=== PATIENT | female | born 1975 | race Caucasian/White ===

== ENCOUNTER 2018-12-10 00:50 | Emergency (ER) | payer BC, OTHER ==
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
[2018-12-10 01:41] LABS: ANION GAP 11.7 mmol/L (5-15); CHLORIDE,CL 104 mmol/L (98-115); SODIUM,NA 138 mmol/L (136-145)
[2018-12-10] MEDS ORDERED: Nitrofurantoin Macrocrystal 50 MG Cap PO ONE (02:33)
== END 2018-12-10 02:45 | disposition home or self-care (01) ==
LOC: KA.ED 00:50
DX: N30.90 Cystitis, unspecified without hematuria (principal); Z79.899 Other long term (current) drug therapy
CPT/HCPCS: 36415; 80048; 80305-QW; 81001; 82962; 84443; 85025; 93005; 99285-25; A9270-GY; G0480

== ENCOUNTER 2020-06-22 20:12 | Emergency (ER) | payer OTHER ==
--- NOTE | 2020-06-22 20:40 | EDM.PDOC ---
ED HPI GENERAL MEDICAL PROBLEM - General Chief Complaint: Flank Pain Stated Complaint: BACK PAIN Time Seen by Provider: 06/22/20 20:40 Source of Information: Reports: Patient History Limitations: Reports: No Limitations - History of Present Illness INITIAL COMMENTS - FREE TEXT/NARRATIVE: Worsening right flank pain specifically today. Was seen in the clinic today with a UA run showing positive findings for infection. Received a gram of Rocephin IM and states she is coming back tomorrow for further antibiotic treatment. States pain is getting worse predominantly in the right flank questioning worsening symptoms with her associated UTI during . Onset: Today, Gradual Duration: Hour(s):, Getting Worse Location: Reports: Back Quality: Reports: Pressure, Sharp, Stabbing Severity: Moderate Improves with: Reports: None Worsens with: Reports: Movement Associated Symptoms: Reports: Fever/Chills Treatments BUSINESS ANALYTICS SPECIALIST: Reports: NSAIDS Lower Back Pain Score (Numeric/FACES): 8 - Related Data Allergies Allergy/AdvReac Type Severity Reaction Status Date / Time No Known Drug Allergies Allergy Unknown Other Verified 06/22/20 20:30 Home Meds: Home Meds Levothyroxine [Synthroid] 88 mcg PO DAILY 12/10/18 [History] Pnv No.103/Folic/Om3s/Fish Oil [ Gummies] 2 each PO DAILY 06/22/20 [History] Past Medical History Genitourinary History: Reports: Other (See Below) (UTI) COMPENSATION SPECIALIST History: Reports: Other COMPENSATION SPECIALIST History: 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 Endocrine/Metabolic History: Reports: Hypothyroidism Social & Family History - Family History Family Medical History: Noncontributory - Caffeine Use Caffeine Use: Reports: Soda ED ROS GENERAL - Review of Systems Review Of Systems: See Below Constitutional: Reports: Chills HEENT: Reports: No Symptoms Respiratory: Reports: No Symptoms Cardiovascular: Reports: No Symptoms Endocrine: Reports: No Symptoms GI/Abdominal: Reports: Abdominal Pain : Reports: Frequency Musculoskeletal: Reports: Back Pain Neurological: Reports: No Symptoms Psychiatric: Reports: No Symptoms Hematologic/Lymphatic: Reports: No Symptoms Immunologic: Reports: No Symptoms ED EXAM, GENERAL - Physical Exam Exam: See Below Free Text/Narrative:: Alert in discomfort, 44-year-old female who reports 16-week gestation at this time. Heart tones were found in the clinic and were normal range on her visit today. She received 1 g Rocephin IM for her UTI during and was scheduled for follow-up tomorrow. HEENT is negative discharge or deformity. PERRLA no icterus no injection. [place] moist mucous membranes with no erythema. Thorax is clear throughout no wheezes no crackles motion seems to induce right flank discomfort. Cardiac is S1 is 2 no noted murmur. Abdomen is soft tenderness is noted to the right lateral aspect with bowel sounds present. Percussion of the right flank induces severe pain and spasming. Left is for the most part benign. She is able to move her legs about with no discomfort. Course - Vital Signs Last Recorded V/S: Last Vital Signs Temp 38.1 C 06/22/20 21:31 Pulse 105 H 06/22/20 21:31 Resp 20 06/22/20 21:31 BP 108/61 06/22/20 21:31 Pulse Ox 99 06/22/20 21:31 - Orders/Labs/Meds Orders: Active Orders 24 hr Category Date Time Status Peripheral IV Care [RC] . DIRECTED Care 06/22/20 20:43 Active CULTURE URINE [RM] Stat Lab 06/22/20 21:05 Received Potassium Chloride [KCL 20 MEQ in Water 100 ML] 20 meq Med 06/22/20 21:38 Ordered Premix Bag 1 bag IV ONETIME Sodium Chloride 0.9% [Normal Saline] 1,000 ml Med 06/22/20 20:45 Active IV ASDIRECTED Sodium Chloride 0.9% [Saline Flush] Med 06/22/20 20:43 Active 10 ml FLUSH Q8HR PRN Peripheral IV Insertion Adult [OM.PC] Routine Oth 06/22/20 20:43 Ordered Medication Orders Sodium Chloride (Normal Saline) 1,000 mls @ 150 mls/hr IV ASDIRECTED CAYLA Last Admin: 06/22/20 20:54 Dose: 150 mls/hr Documented by: ASHER Potassium Chloride 20 meq/ (Premix) 100 mls @ 50 mls/hr IV ONETIME ONE Stop: 06/22/20 23:37 Sodium Chloride (Saline Flush) 10 ml FLUSH Q8HR PRN PRN Reason: keep vein open Labs: Laboratory Tests 06/22/20 06/22/20 06/22/20 Range/Units 20:55 20:55 20:55 WBC 3.51 L (5.00-10.00) 10^3/uL RBC 3.35 L (3.80-5.50) 10^6/uL Hgb 11.2 L (12.0-16.0) g/dL Hct 32.1 L (37.0-47.0) % MCV 95.8 H (82.0-92.0) fL MCH 33.4 H (27.0-31.0) pg MCHC 34.9 (32.0-36.0) g/dL RDW 13.7 (11.5-14.5) % Plt Count 128 L (150-400) 10^3/uL MPV 9.5 (7.4-10.4) fL Add Manual Diff Yes Sodium 135 L (136-145) mmol/L Potassium 2.9 L (3.3-5.3) mmol/L Chloride 98 (98-115) mmol/L Carbon Dioxide 19.6 L (21.0-32.0) mmol/L Anion Gap 20.3 H (5-15) mmol/L BUN 11 (6-25) mg/dL Creatinine 0.92 (0.51-1.17) mg/dL Est Cr Clr Drug Dosing 60.11 mL/min Estimated GFR (MDRD) > 60 mL/min Glucose 81 (75 - 99) mg/dL Lactic Acid 1.8 (0.4-2.0) mmol/L Calcium 8.1 L (8.7-10.3) mg/dL Total Bilirubin 0.8 (0.2-1.0) mg/dL AST 15 (15-37) U/L ALT 14 (12-78) U/L Alkaline Phosphatase 84 (46-116) IU/L Total Protein 6.9 (6.4-8.2) g/dL Albumin 2.85 L (3.00-4.80) g/dL Specimen Type Urine Color (YELLOW) Urine Appearance (CLEAR) Urine pH (5.0-9.0) Ur Specific [place] (1.005-1.030) Urine Protein (NEGATIVE) mg/dL Urine Glucose (UA) (NEGATIVE) mg/dL Urine Ketones (NEGATIVE) mg/dL Urine Occult Blood (NEGATIVE) Urine Nitrite (NEGATIVE) Urine Bilirubin (NEGATIVE) Urine Urobilinogen (0.2-1.0) E.U./dL Ur Leukocyte Esterase (NEGATIVE) Urine RBC (0-5) /HPF Urine WBC (0-5) /HPF Ur Epithelial Cells /LPF Urine Bacteria (NONE TO FEW) /HPF 06/22/20 Range/Units 21:05 WBC (5.00-10.00) 10^3/uL RBC (3.80-5.50) 10^6/uL Hgb (12.0-16.0) g/dL Hct (37.0-47.0) % MCV (82.0-92.0) fL MCH (27.0-31.0) pg MCHC (32.0-36.0) g/dL RDW (11.5-14.5) % Plt Count (150-400) 10^3/uL MPV (7.4-10.4) fL Add Manual Diff Sodium (136-145) mmol/L Potassium (3.3-5.3) mmol/L Chloride (98-115) mmol/L Carbon Dioxide (21.0-32.0) mmol/L Anion Gap (5-15) mmol/L BUN (6-25) mg/dL Creatinine (0.51-1.17) mg/dL Est Cr Clr Drug Dosing mL/min Estimated GFR (MDRD) mL/min Glucose (75 - 99) mg/dL Lactic Acid (0.4-2.0) mmol/L Calcium (8.7-10.3) mg/dL Total Bilirubin (0.2-1.0) mg/dL AST (15-37) U/L ALT (12-78) U/L Alkaline Phosphatase (46-116) IU/L Total Protein (6.4-8.2) g/dL Albumin (3.00-4.80) g/dL Specimen Type Urincc Urine Color Yellow (YELLOW) Urine Appearance Slightly cloudy H (CLEAR) Urine pH 6.5 (5.0-9.0) Ur Specific [place] 1.020 (1.005-1.030) Urine Protein 100 H (NEGATIVE) mg/dL Urine Glucose (UA) Negative (NEGATIVE) mg/dL Urine Ketones >=160 H (NEGATIVE) mg/dL Urine Occult Blood Large H (NEGATIVE) Urine Nitrite Negative (NEGATIVE) Urine Bilirubin Negative (NEGATIVE) Urine Urobilinogen 0.2 (0.2-1.0) E.U./dL Ur Leukocyte Esterase Small H (NEGATIVE) Urine RBC Semi-packed (0-5) /HPF Urine WBC Semi-packed (0-5) /HPF Ur Epithelial Cells Moderate H /LPF Urine Bacteria Many H (NONE TO FEW) /HPF Meds: Medications Generic Name Dose Route Start Last Admin Trade Name Freq PRN Reason Stop Dose Admin Sodium Chloride 1,000 mls @ 150 mls/hr 06/22/20 20:45 06/22/20 20:54 Normal Saline IV 150 mls/hr ASDIRECTED CAYLA Administration Potassium Chloride 20 meq/ 100 mls @ 50 mls/hr 06/22/20 21:38 Premix IV 06/22/20 23:37 ONETIME ONE Sodium Chloride 10 ml 06/22/20 20:43 Saline Flush FLUSH Q8HR PRN keep vein open Discontinued Medications Generic Name Dose Route Start Last Admin Trade Name Freq PRN Reason Stop Dose Admin Acetaminophen 1,000 mg 06/22/20 21:00 06/22/20 21:16 Tylenol Extra Strength PO 06/22/20 21:01 1,000 mg ONETIME ONE Administration Departure - Departure Time of Disposition: 21:53 Disposition: DC/Tfer to Acute Hospital 02 Condition: Good Clinical Impression: Hypokalemia, Bladder infection, Acute right flank pain, UTI (urinary tract infection) in in first trimester, Proteinuria, Ketonuria, Anemia, Hematuria - Discharge Information *PRESCRIPTION DRUG MONITORING PROGRAM REVIEWED*: Not Applicable *COPY OF PRESCRIPTION DRUG MONITORING REPORT IN PATIENT ESTEPHANIA: Not Applicable Referrals: Yaneth Hwang PA-C [Primary Care Provider] - Forms: Interfacility Transfer EMTALA, ED Department Discharge Additional Instructions: Transfer [facility] for ultrasound availability. Dr. Mancilla accepting. Sepsis Event Note (ED) - Focused Exam Vital Signs: Vital Signs Temp Temp Pulse Resp BP Pulse Ox 06/22/20 21:31 38.1 C 105 H 20 108/61 99 06/22/20 21:16 38.1 C 06/22/20 20:35 38.5 C H 113 H 20 117/62 96 - Problem List & Annotations (1) UTI (urinary tract infection) in in first trimester SNOMED Code(s): 744864166, 680314318 Code(s): O23.41 - UNSP INFCT OF URINARY TRACT IN , FIRST TRIMESTER Status: Acute Priority: High Current Visit: Yes (2) Anemia SNOMED Code(s): 918917762 Code(s): D64.9 - ANEMIA, UNSPECIFIED Status: Acute Priority: High Current Visit: Yes Qualifiers: Anemia type: other cause Other causes of anemia: other cause, not classified Qualified Code(s): D64.89 - Other specified anemias (3) Hypokalemia SNOMED Code(s): 99660291 Code(s): E87.6 - HYPOKALEMIA Status: Acute Priority: Medium Current Visit: Yes (4) Proteinuria SNOMED Code(s): 56786070 Code(s): R80.9 - PROTEINURIA, UNSPECIFIED Status: Acute Priority: High Current Visit: Yes Qualifiers: Proteinuria type: unspecified Qualified Code(s): R80.9 - Proteinuria, unspecified (5) Ketonuria SNOMED Code(s): 408470378 Code(s): R82.4 - ACETONURIA Status: Acute Priority: Medium Current Visit: Yes (6) Hematuria SNOMED Code(s): 01354811 Code(s): R31.9 - HEMATURIA, UNSPECIFIED Status: Acute Priority: Medium Current Visit: Yes Qualifiers: Hematuria type: other microscopic Qualified Code(s): R31.29 - Other microscopic hematuria; R31.2 - Other microscopic hematuria (7) Acute right flank pain SNOMED Code(s): 678743043, 765585849 Code(s): R10.9 - UNSPECIFIED ABDOMINAL PAIN Status: Acute Priority: Medium Current Visit: Yes (8) Bladder infection SNOMED Code(s): 876757536 Code(s): N30.90 - CYSTITIS, UNSPECIFIED WITHOUT HEMATURIA Status: Acute Priority: High Current Visit: No - Problem List Review Problem List Initiated/Reviewed/Updated: Yes - My Orders Last 24 Hours: My Active Orders 06/22/20 20:43 Peripheral IV Care [RC] . DIRECTED Sodium Chloride 0.9% [Saline Flush] 10 ml FLUSH Q8HR PRN Peripheral IV Insertion Adult [OM.PC] Routine 06/22/20 20:45 Sodium Chloride 0.9% [Normal Saline] 1,000 ml IV ASDIRECTED 06/22/20 21:05 CULTURE URINE [RM] Stat 06/22/20 21:38 Potassium Chloride [KCL 20 MEQ in Water 100 ML] 20 meq Premix Bag 1 bag IV ONETIME - Assessment/Plan Last 24 Hours: My Active Orders 06/22/20 20:43 Peripheral IV Care [RC] . DIRECTED Sodium Chloride 0.9% [Saline Flush] 10 ml FLUSH Q8HR PRN Peripheral IV Insertion Adult [OM.PC] Routine 06/22/20 20:45 Sodium Chloride 0.9% [Normal Saline] 1,000 ml IV ASDIRECTED 06/22/20 21:05 CULTURE URINE [RM] Stat 06/22/20 21:38 Potassium Chloride [KCL 20 MEQ in Water 100 ML] 20 meq Premix Bag 1 bag IV ONETIME Plan: Transfer to the [place] emergency department in [facility] for ultrasound and potential OB consult if needed.
[2020-06-22] MEDS ORDERED: Sodium Chloride 0.9% 10 ML Syringe FLUSH PRN (20:43)
[2020-06-22] MEDS ORDERED: Sodium Chloride 0.9% 1,000 ML IV SCH (20:45)
[2020-06-22] MEDS ORDERED: Acetaminophen 500 MG Tab PO ONE (21:00)
[2020-06-22 21:33] LABS: ANION GAP 20.3 mmol/L (5-15); CHLORIDE,CL 98 mmol/L (98-115); SODIUM,NA 135 mmol/L (136-145)
[2020-06-22] MEDS ORDERED: Potassium Chloride 20 MEQ in Premix Bag 1 BAG IV ONE (21:38)
== END 2020-06-22 22:20 ==
LOC: KA.ED 20:12
DX: O23.12 Infections of bladder in pregnancy, second trimester (principal); O99.012 Anemia complicating pregnancy, second trimester; O99.282 Endocrine, nutritional and metabolic diseases complicating pregnancy, second trimester; E87.6 Hypokalemia; E03.9 Hypothyroidism, unspecified; O99.89 Other specified diseases and conditions complicating pregnancy, childbirth and the puerperium; R31.9 Hematuria, unspecified; R80.9 Proteinuria, unspecified; R82.4 Acetonuria; Z79.899 Other long term (current) drug therapy; Z3A.16 16 weeks gestation of pregnancy
CPT/HCPCS: 80053; 81001; 83605; 85025; 87086; 96361; 96365; 99284; 99285-25; A9270-GY; J3480; J7030

== ENCOUNTER 2021-05-23 08:18 | Emergency (ER) | payer OTHER ==
--- NOTE | 2021-05-23 08:42 | EDM.PDOC ---
ED HPI GENERAL MEDICAL PROBLEM - General Chief Complaint: Gastrointestinal Problem Stated Complaint: nausea/vomiting Time Seen by Provider: 05/23/21 08:42 Source of Information: Reports: Patient - History of Present Illness INITIAL COMMENTS - FREE TEXT/NARRATIVE: Rola, 45-year-old female, presents with her with complaints of nausea with emesis previously. He had eaten ribs that have been brought by her family with them eating the same substance Monday night with no sequela. Rola started experiencing abdominal cramping with nausea and vomiting that evening. Symptoms of, wax and wane but never completely resolved over the weekend. She presents this morning with continued event. Mild hyperventilation symptoms at this time. Voided this morning with no urge to void at this time. No exposure risks with other family members being ill, predominantly only herself. states this is similar to the last time she had a UTI. Onset Date: 05/21/21 Onset Time: 20:00 Duration: Day(s): Location: Reports: Abdomen Generalized Pain Score (Numeric/FACES): 6 - Related Data Allergies Allergy/AdvReac Type Severity Reaction Status Date / Time No Known Drug Allergies Allergy Unknown Other Verified 05/23/21 09:31 Home Meds: Home Meds Levothyroxine [Synthroid] 88 mcg PO DAILY 12/10/18 [History] Pnv No.103/Folic/Om3s/Fish Oil [ Gummies] 2 each PO DAILY 06/22/20 [History] Past Medical History HEENT History: Reports: Impaired Vision Cardiovascular History: Reports: None Respiratory History: Reports: None Gastrointestinal History: Reports: None Genitourinary History: Reports: Other (See Below) (UTI) 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 Musculoskeletal History: Reports: None Neurological History: Reports: None Psychiatric History: Reports: None Endocrine/Metabolic History: Reports: Hypothyroidism Hematologic History: Reports: None Immunologic History: Reports: None Oncologic (Cancer) History: Reports: Thyroid Dermatologic History: Reports: None - Infectious Disease History Infectious Disease History: Reports: None - Past Surgical History Cardiovascular Surgical History: Reports: None Respiratory Surgical History: Reports: None GI Surgical History: Reports: None Female Surgical History: Reports: None, Tubal Ligation Musculoskeletal Surgical History: Reports: None Social & Family History - Family History Family Medical History: No Pertinent Family History - Caffeine Use Caffeine Use: Reports: Soda ED ROS GENERAL - Review of Systems Review Of Systems: Comprehensive ROS is negative, except as noted in HPI. ED EXAM, GENERAL - Physical Exam Exam: See Below Free Text/Narrative:: Alert oriented in illness appearing state. HEENT is negative discharge or deformity Tacky membranes. Neck soft supple no lymphadenopathy. Thorax is clear I do not appreciate any wheezes nor any crackles. Cardiac is tachycardic frequent murmur. Abdomen is soft mild pressure tenderness with bowel sounds present. No edema to the lower extremities. Course - Vital Signs Last Recorded V/S: Last Vital Signs Temp 98.8 F 05/23/21 10:10 Pulse 99 05/23/21 10:25 Resp 16 05/23/21 10:25 BP 108/55 L 05/23/21 10:25 Pulse Ox 96 05/23/21 10:25 - Orders/Labs/Meds Orders: Active Orders 24 hr Category Date Time Status CULTURE URINE [RM] Stat Lab 05/23/21 09:30 Received Labs: Laboratory Tests 05/23/21 05/23/21 05/23/21 Range/Units 08:35 08:35 08:35 WBC 7.04 (5.00-10.00) 10^3/uL RBC 4.71 (3.80-5.50) 10^6/uL Hgb 14.8 D (12.0-16.0) g/dL Hct 45.7 (37.0-47.0) % MCV 97.0 H (82.0-92.0) fL MCH 31.4 H (27.0-31.0) pg MCHC 32.4 (32.0-36.0) g/dL RDW 13.0 (11.5-14.5) % Plt Count 187 (150-400) 10^3/uL MPV 9.6 (7.4-10.4) fL Immature Gran % (Auto) 0.0 (0.0-5.0) % Neut % (Auto) 89.5 H (50.0-70.0) % Lymph % (Auto) 9.5 L (20.0-40.0) % Louisa % (Auto) 0.7 L (2.0-8.0) % Eos % (Auto) 0.0 L (1.0-3.0) % Baso % (Auto) 0.3 (0.0-1.0) % Neut # (Auto) 6.30 (2.50-7.00) 10^3/uL Lymph # (Auto) 0.67 L (1.00-4.00) 10^3/uL Louisa # (Auto) 0.05 L (0.10-0.80) 10^3/uL Eos # (Auto) 0.00 L (0.10-0.30) 10^3/uL Baso # (Auto) 0.02 (0.00-0.10) 10^3/uL Immature Gran # (Auto) 0.00 (0.00-0.50) 10^3/uL Sodium 136 (136-145) mmol/L Potassium 3.9 (3.5-5.1) mmol/L Chloride 96 L (98-107) mmol/L Carbon Dioxide 16.1 L (21.0-32.0) mmol/L Anion Gap 27.8 H (5-15) mmol/L BUN 18 (7-18) mg/dL Creatinine 0.84 (0.51-1.17) mg/dL Est Cr Clr Drug Dosing TNP Estimated GFR (MDRD) > 60 mL/min Glucose 115 (70-140) mg/dL Lactic Acid 5.8 H (0.4-2.0) mmol/L Calcium 8.5 L (8.7-10.3) mg/dL Total Bilirubin 1.4 H (0.2-1.0) mg/dL AST 17 (15-37) U/L ALT 23 (14-63) U/L Alkaline Phosphatase 119 H (46-116) U/L Total Protein 9.0 H (6.4-8.2) g/dL Albumin 3.94 (3.40-5.00) g/dL Specimen Type Urine Color (YELLOW) Urine Appearance (CLEAR) Urine pH (5.0-9.0) Ur Specific [place] (1.005-1.030) Urine Protein (NEGATIVE) mg/dL Urine Glucose (UA) (NEGATIVE) mg/dL Urine Ketones (NEGATIVE) mg/dL Urine Occult Blood (NEGATIVE) Urine Nitrite (NEGATIVE) Urine Bilirubin (NEGATIVE) Urine Urobilinogen (0.2-1.0) E.U./dL Ur Leukocyte Esterase (NEGATIVE) Urine RBC (0-5) /HPF Urine WBC (0-5) /HPF Ur Epithelial Cells /LPF Urine Bacteria (NONE TO FEW) /HPF 05/23/21 Range/Units 09:30 WBC (5.00-10.00) 10^3/uL RBC (3.80-5.50) 10^6/uL Hgb (12.0-16.0) g/dL Hct (37.0-47.0) % MCV (82.0-92.0) fL MCH (27.0-31.0) pg MCHC (32.0-36.0) g/dL RDW (11.5-14.5) % Plt Count (150-400) 10^3/uL MPV (7.4-10.4) fL Immature Gran % (Auto) (0.0-5.0) % Neut % (Auto) (50.0-70.0) % Lymph % (Auto) (20.0-40.0) % Louisa % (Auto) (2.0-8.0) % Eos % (Auto) (1.0-3.0) % Baso % (Auto) (0.0-1.0) % Neut # (Auto) (2.50-7.00) 10^3/uL Lymph # (Auto) (1.00-4.00) 10^3/uL Louisa # (Auto) (0.10-0.80) 10^3/uL Eos # (Auto) (0.10-0.30) 10^3/uL Baso # (Auto) (0.00-0.10) 10^3/uL Immature Gran # (Auto) (0.00-0.50) 10^3/uL Sodium (136-145) mmol/L Potassium (3.5-5.1) mmol/L Chloride (98-107) mmol/L Carbon Dioxide (21.0-32.0) mmol/L Anion Gap (5-15) mmol/L BUN (7-18) mg/dL Creatinine (0.51-1.17) mg/dL Est Cr Clr Drug Dosing Estimated GFR (MDRD) mL/min Glucose (70-140) mg/dL Lactic Acid (0.4-2.0) mmol/L Calcium (8.7-10.3) mg/dL Total Bilirubin (0.2-1.0) mg/dL AST (15-37) U/L ALT (14-63) U/L Alkaline Phosphatase (46-116) U/L Total Protein (6.4-8.2) g/dL Albumin (3.40-5.00) g/dL Specimen Type Ur[place]ath Urine Color Yellow (YELLOW) Urine Appearance Clear (CLEAR) Urine pH 5.5 (5.0-9.0) Ur Specific [place] >= 1.030 (1.005-1.030) Urine Protein 100 H (NEGATIVE) mg/dL Urine Glucose (UA) Negative (NEGATIVE) mg/dL Urine Ketones >=160 H (NEGATIVE) mg/dL Urine Occult Blood Large H (NEGATIVE) Urine Nitrite Negative (NEGATIVE) Urine Bilirubin Negative (NEGATIVE) Urine Urobilinogen 0.2 (0.2-1.0) E.U./dL Ur Leukocyte Esterase Trace H (NEGATIVE) Urine RBC 75-100 H (0-5) /HPF Urine WBC >100 H (0-5) /HPF Ur Epithelial Cells Rare /LPF Urine Bacteria Rare (NONE TO FEW) /HPF Meds: Medications Discontinued Medications Generic Name Dose Route Start Last Admin Trade Name Bakari PRN Reason Stop Dose Admin Sodium Chloride 1,000 mls @ 999 mls/hr 05/23/21 08:35 05/23/21 08:51 Normal Saline IV 05/23/21 09:35 999 mls/hr .BOLUS ONE Administration Sodium Chloride 1,000 mls @ 999 mls/hr 05/23/21 09:46 05/23/21 09:50 Normal Saline IV 05/23/21 10:46 999 mls/hr .BOLUS ONE Administration Sodium Chloride Confirm 05/23/21 09:48 Normal Saline Administered 05/23/21 09:49 Dose 1,000 mls @ as directed .ROUTE .STK-MED ONE Ondansetron HCl 4 mg 05/23/21 08:37 05/23/21 08:50 Ondansetron 4 Mg/2 Ml Sdv IVPUSH 05/23/21 08:38 4 mg ONETIME ONE Administration - Re-Assessments/Exams Free Text/Narrative Re-Assessment/Exam: 05/23/21 09:29 Feeling better at this time IV fluidsFeeling better at this time IV fluids and able to take ice chips with no nausea. 05/23/21 09:47 Continuing to feel better with IV fluids nearly complete. Second bag will run as she still remains mildly tachycardic. Extreme concentration of the urine was noted. No further hyperventilation since fluids were started and anti-emetic given. Lab values reflect alkalosis due to hyperventilation. 05/23/21 09:48 Free Text/Narrative Re-Assessment/Exam: 05/23/21 10:55 Second liter of IV fluid concluded , feeling somewhat better. We were able to get up to bedside in a seated position with no dizziness nor complaint. She was unable to stand directly stating she feels good and ambulate with no di stress. At that time we discussed the aspects that she needs increased fluid and to maintain a less stressful lifestyle for the next 24 hours and if symptoms return or worsen contact us or follow-up with the clinic as there is not a true gross presentation in the urine for treatment, maintains a normal white count, and lactic acid may elevate for various other reasons with metabolism. Departure - Departure Time of Disposition: 10:54 Disposition: Home, Self-Care 01 Condition: Good Clinical Impression: Elevated lactic acid level, Tachycardia, Nausea & vomiting - Discharge Information *PRESCRIPTION DRUG MONITORING PROGRAM REVIEWED*: Not Applicable *COPY OF PRESCRIPTION DRUG MONITORING REPORT IN PATIENT ESTEPHANIA: Not Applicable Instructions: Dehydration, Adult, [id number], Nausea, Adult, [id number] Referrals: Joy العلي MD [Primary Care Provider] - Forms: ED Department Discharge Additional Instructions: Your urine is not grossly positive for UTI, blood is quite common to be seen when a catheter was used to obtain the sample. Culture is pending on this and you will be contacted if a bacterial development would culture. The nausea you started experiencing with vomiting after eating may be just be coincidental but it did contribute to you becoming more to the dehydrated state. Your urine was extremely concentrated as well as your heart rate being high when you came in, which is improved with the fluids. You need to go home and rest, continue your medications, make sure you continue to push fluids and maintain a clear appearing urine. In the event your symptoms should return or you develop new symptoms consideration for return to the emergency department should be considered or follow-up with your clinic this week. We will be contacting you with the culture results if positive requiring any form of treatment. Sepsis Event Note (ED) - Focused Exam Vital Signs: Vital Signs Temp Pulse Resp BP Pulse Ox 05/23/21 10:25 99 16 108/55 L 96 05/23/21 10:10 98.8 F 106 H 16 109/56 L 98 05/23/21 09:55 101 H 20 107/55 L 97 05/23/21 09:40 98.8 F 102 H 16 109/52 L 98 05/23/21 09:25 98.9 F 112 H 20 118/59 L 98 05/23/21 09:10 99.2 F 110 H 22 H 127/66 96 05/23/21 08:55 99.2 F 114 H 22 H 123/65 96 05/23/21 08:20 99.1 F 118 H 26 H 115/79 100 - Problem List & Annotations (1) Nausea & vomiting SNOMED Code(s): 89484714 Code(s): R11.2 - NAUSEA WITH VOMITING, UNSPECIFIED Status: Acute Current Visit: Yes (2) Fever SNOMED Code(s): 653019693 Code(s): R50.9 - FEVER, UNSPECIFIED Status: Acute Current Visit: Yes (3) Elevated lactic acid level SNOMED Code(s): 5867137 Code(s): R79.89 - OTHER SPECIFIED ABNORMAL FINDINGS OF BLOOD CHEMISTRY Status: Acute Current Visit: Yes (4) Tachycardia SNOMED Code(s): 4091318 Code(s): R00.0 - TACHYCARDIA, UNSPECIFIED Status: Acute Priority: Medium Current Visit: Yes - Problem List Review Problem List Initiated/Reviewed/Updated: Yes - My Orders Last 24 Hours: My Active Orders 05/23/21 09:30 CULTURE URINE [RM] Stat - Assessment/Plan Last 24 Hours: My Active Orders 05/23/21 09:30 CULTURE URINE [RM] Stat Assessment:: Hyperventilation resolved, tachycardia resolved with fluid. Nausea resolved with antiemetic. Feeling much better and awaiting discharge with follow-up recommendations. Plan: Your urine is not grossly positive for UTI, blood is quite common to be seen when a catheter was used to obtain the sample. Culture is pending on this and you will be contacted if a bacterial development would culture. The nausea you started experiencing with vomiting after eating may be just be coincidental but it did contribute to you becoming more to the dehydrated state. Your urine was extremely concentrated as well as your heart rate being high when you came in, which is improved with the fluids. You need to go home and rest, continue your medications, make sure you continue to push fluids and maintain a clear appearing urine. In the event your symptoms should return or you develop new symptoms consideration for return to the emergency department should be considered or follow-up with your clinic this week. We will be contacting you with the culture results if positive requiring any form of treatment.
[2021-05-23] MEDS: Ondansetron 4 MG/2 ML SDV IVPUSH ONE (08:50)
[2021-05-23] MEDS: Sodium Chloride 0.9% 1,000 ML IV ONE ×2 (08:51→09:50)
[2021-05-23 09:04] LABS: ANION GAP 27.8 mmol/L (5-15); CHLORIDE,CL 96 mmol/L (98-107); SODIUM,NA 136 mmol/L (136-145)
[2021-05-23 12:29] VITALS: BP 103/53; PULSE 100
[2021-05-24] MEDS: Sodium Chloride 0.9% 1,000 ML ONE (10:41)
== END 2021-05-23 11:10 | disposition home or self-care (01) ==
LOC: KA.ED 08:18
DX: R11.2 Nausea with vomiting, unspecified (principal); R00.0 Tachycardia, unspecified; R74.02 Elevation of levels of lactic acid dehydrogenase [LDH]; E03.9 Hypothyroidism, unspecified; Z79.899 Other long term (current) drug therapy
CPT/HCPCS: 36415; 80053; 81001; 83605; 85025; 87086; 96374; 99284; 99284-25; J2405; J7030

== ENCOUNTER 2021-05-25 00:16 | Emergency (ER) | payer OTHER ==
[2021-05-25] MEDS ORDERED: Sodium Chloride 0.9% 10 ML Syringe FLUSH PRN (00:31)
--- NOTE | 2021-05-25 00:35 | EDM.PDOC ---
ED HPI GENERAL MEDICAL PROBLEM - General Chief Complaint: Gastrointestinal Problem Stated Complaint: Nausea/Vomiting, Right lower abdominal Pain Time Seen by Provider: 05/25/21 00:20 Source of Information: Reports: Patient History Limitations: Reports: No Limitations - History of Present Illness INITIAL COMMENTS - FREE TEXT/NARRATIVE: 45 YO WF PRESENTS TO ER COMPLAINING OF INTRACTABLE NAUSEA/VOMITING WHICH BEGAN 4 DAYS AGO. PT REPORTS SHE WAS SEEN IN ER 2 DAYS AGO AND TREATED WITH IV FLUIDS AND ANTIEMETICS. PT REPORTS SHE WAS SENT HOME WITHOUT ANY MEDICATIONS. PT REPORTS TODAY WHEN ATTEMPTING TO EAT SHE BEGAN VOMITING AGAIN WITH RLQ ABDOMINAL PAIN PROMPTING ER EVALUATION. PT WITH HISTORY OF UTI'S IN THE PAST BUT DENIES DYSURIA/FREQUENCY OR URGENCY. PT DENIES FEVER/CHILLS, NO BACK PAIN. PT REPORTS SHE HAD A 6 MONTHS AGO WELL A BILATERAL TUBAL LIGATION. Onset Date: 05/21/21 Duration: Day(s): (4) Location: Reports: Abdomen Quality: Reports: Ache Severity: Mild Improves with: Reports: None Worsens with: Reports: Eating Associated Symptoms: Reports: Loss of Appetite, Malaise, Nausea/Vomiting. Denies: Chest Pain, Cough, Fever/Chills, Shortness of Breath Right Lower Abdomen Pain Score (Numeric/FACES): 5 - Related Data Allergies Allergy/AdvReac Type Severity Reaction Status Date / Time No Known Drug Allergies Allergy Unknown Other Verified 05/25/21 00:32 Home Meds: Home Meds Levothyroxine [Synthroid] 88 mcg PO DAILY 12/10/18 [History] Pnv No.95/Ferrous Fum/Folic AC [ Tablet] 1 each PO DAILY 05/25/21 [History] Past Medical History HEENT History: Reports: Impaired Vision Cardiovascular History: Reports: None Respiratory History: Reports: None Gastrointestinal History: Reports: None Genitourinary History: Reports: Other (See Below) Other Genitourinary History: UTI last year (2019) [employer] History: Reports: Other [employer]GER [employer] History: 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 Musculoskeletal History: Reports: None Neurological History: Reports: None Psychiatric History: Reports: None Endocrine/Metabolic History: Reports: Hypothyroidism Hematologic History: Reports: None Immunologic History: Reports: None Oncologic (Cancer) History: Reports: Thyroid Dermatologic History: Reports: None - Infectious Disease History Infectious Disease History: Reports: None - Past Surgical History Cardiovascular Surgical History: Reports: None Respiratory Surgical History: Reports: None GI Surgical History: Reports: None Female Surgical History: Reports: Section, Tubal Ligation Musculoskeletal Surgical History: Reports: None Social & Family History - Family History Family Medical History: No Pertinent Family History - Caffeine Use Caffeine Use: Reports: None ED ROS GENERAL - Review of Systems Review Of Systems: See Below Constitutional: Reports: Malaise, Decreased Appetite HEENT: Reports: No Symptoms Respiratory: Reports: No Symptoms Cardiovascular: Reports: No Symptoms Endocrine: Reports: No Symptoms GI/Abdominal: Reports: Abdominal Pain, Nausea, Vomiting : Reports: No Symptoms Musculoskeletal: Reports: No Symptoms Skin: Reports: No Symptoms Neurological: Reports: No Symptoms Psychiatric: Reports: No Symptoms Hematologic/Lymphatic: Reports: No Symptoms Immunologic: Reports: No Symptoms ED EXAM, GI/ABD - Physical Exam Exam: See Below Exam Limited By: No Limitations General Appearance: Alert, WD/WN, No Apparent Distress Respiratory/Chest: No Respiratory Distress, Lungs Clear, Normal Breath Sounds, No Accessory Muscle Use, Chest Non-Tender Cardiovascular: Normal Peripheral Pulses, Regular Rate, Rhythm, No Edema, No Gallop, No JVD, No Murmur, No Rub GI/Abdominal Exam: Normal Bowel Sounds, Soft, No Organomegaly, No Distention, No Abnormal Bruit, Rebound, Tender (RLQ) Back Exam: Normal Inspection, Full Range of Motion, NT Extremities: Normal Inspection, Normal Range of Motion, Non-Tender, Normal Capillary Refill, No Pedal Edema Neurological: Alert, Oriented, CN II-XII Intact, Normal Cognition, Normal Gait, Normal Reflexes, No Motor/Sensory Deficits Psychiatric: Normal Affect, Normal Mood Skin Exam: Warm, Dry, Intact, Normal Color, No Rash Lymphatic: No Adenopathy Course - Vital Signs Last Recorded V/S: Last Vital Signs Temp 97.7 F 05/25/21 00:25 Pulse 94 05/25/21 00:25 Resp 24 H 05/25/21 00:25 BP 117/73 05/25/21 00:25 Pulse Ox 100 05/25/21 00:25 - Orders/Labs/Meds Orders: Active Orders 24 hr Category Date Time Status Peripheral IV Care [RC] . DIRECTED Care 05/25/21 00:32 Active Abdomen Pelvis w Cont [CT] Stat Exams 05/25/21 00:42 Ordered Piperacillin/Tazobactam/Dext [Zosyn in Dextrose Iso- Med 05/25/21 03:12 Ordered Osmotic 3.375 GM/50 ML] 3.375 gm Premix Bag 1 bag IV ONETIME Sodium Chloride 0.9% @ 125 MLS/HR (1000ml) Med 05/25/21 03:15 Ordered Sodium Chloride 0.9% [Normal Saline] 1,000 ml IV ASDIRECTED Sodium Chloride 0.9% [Normal Saline] 50 ml Med 05/25/21 01:30 Active IV ASDIRECTED Sodium Chloride 0.9% [Saline Flush] Med 05/25/21 00:31 Active 10 ml FLUSH Q8HR PRN Peripheral IV Insertion Adult [OM.PC] Routine Oth 05/25/21 00:31 Ordered Medication Orders Sodium Chloride (Normal Saline) 50 mls @ 200 mls/min IV ASDIRECTED CAYLA Last Admin: 05/25/21 01:42 Dose: 200 mls/min Documented by: ENDECAY Piperacillin/Tazobactam/ (Dextrose 3.375 gm/ Premix) 50 mls @ 100 mls/hr IV ONETIME ONE Stop: 05/25/21 03:41 Sodium Chloride (Normal Saline) 1,000 mls @ 125 mls/hr IV ASDIRECTED CAYLA Sodium Chloride (Sodium Chloride 0.9% 10 Ml Syringe) 10 ml FLUSH Q8HR PRN PRN Reason: keep vein open Labs: Laboratory Tests 05/25/21 05/25/21 05/25/21 Range/Units 00:45 00:50 00:50 WBC 9.91 (5.00-10.00) 10^3/uL RBC 4.77 (3.80-5.50) 10^6/uL Hgb 14.9 (12.0-16.0) g/dL Hct 45.7 (37.0-47.0) % MCV 95.8 H (82.0-92.0) fL MCH 31.2 H (27.0-31.0) pg MCHC 32.6 (32.0-36.0) g/dL RDW 13.0 (11.5-14.5) % Plt Count 154 (150-400) 10^3/uL MPV 9.6 (7.4-10.4) fL Add Manual Diff Yes Neutrophils % (Manual) 94 H (50-70) % Lymphocytes % (Manual) 4 L (20-40) % Monocytes % (Manual) 2 (2-8) % Absolute Neutrophils 9.3154 Lymphocytes # (Manual) 0.3964 Monocytes # (Manual) 0.1982 Sodium 134 L (136-145) mmol/L Potassium 3.9 (3.5-5.1) mmol/L Chloride 98 (98-107) mmol/L Carbon Dioxide 11.7 L (21.0-32.0) mmol/L Anion Gap 28.2 H (5-15) mmol/L BUN 11 (7-18) mg/dL Creatinine 0.74 (0.51-1.17) mg/dL Est Cr Clr Drug Dosing 73.97 mL/min Estimated GFR (MDRD) > 60 mL/min Glucose 60 L (70-140) mg/dL Calcium 8.8 (8.7-10.3) mg/dL Total Bilirubin 0.7 (0.2-1.0) mg/dL AST 19 (15-37) U/L ALT 23 (14-63) U/L Alkaline Phosphatase 128 H (46-116) U/L Total Protein 8.9 H (6.4-8.2) g/dL Albumin 3.61 (3.40-5.00) g/dL Lipase 45 L (73-393) U/L Specimen Type Urinvoid Urine Color Yellow (YELLOW) Urine Appearance Cloudy H (CLEAR) Urine pH 5.5 (5.0-9.0) Ur Specific [place] >= 1.030 (1.005-1.030) Urine Protein 100 H (NEGATIVE) mg/dL Urine Glucose (UA) Negative (NEGATIVE) mg/dL Urine Ketones >=160 H (NEGATIVE) mg/dL Urine Occult Blood Large H (NEGATIVE) Urine Nitrite Negative (NEGATIVE) Urine Bilirubin Small H (NEGATIVE) Urine Urobilinogen 0.2 (0.2-1.0) E.U./dL Ur Leukocyte Esterase Negative (NEGATIVE) Urine RBC 75-100 H (0-5) /HPF Urine WBC 5-10 H (0-5) /HPF Ur Epithelial Cells Many H /LPF Urine Bacteria Rare (NONE TO FEW) /HPF Urine HCG, Qual (NEGATIVE) 05/25/21 Range/Units 00:50 WBC (5.00-10.00) 10^3/uL RBC (3.80-5.50) 10^6/uL Hgb (12.0-16.0) g/dL Hct (37.0-47.0) % MCV (82.0-92.0) fL MCH (27.0-31.0) pg MCHC (32.0-36.0) g/dL RDW (11.5-14.5) % Plt Count (150-400) 10^3/uL MPV (7.4-10.4) fL Add Manual Diff Neutrophils % (Manual) (50-70) % Lymphocytes % (Manual) (20-40) % Monocytes % (Manual) (2-8) % Absolute Neutrophils Lymphocytes # (Manual) Monocytes # (Manual) Sodium (136-145) mmol/L Potassium (3.5-5.1) mmol/L Chloride (98-107) mmol/L Carbon Dioxide (21.0-32.0) mmol/L Anion Gap (5-15) mmol/L BUN (7-18) mg/dL Creatinine (0.51-1.17) mg/dL Est Cr Clr Drug Dosing mL/min Estimated GFR (MDRD) mL/min Glucose (70-140) mg/dL Calcium (8.7-10.3) mg/dL Total Bilirubin (0.2-1.0) mg/dL AST (15-37) U/L ALT (14-63) U/L Alkaline Phosphatase (46-116) U/L Total Protein (6.4-8.2) g/dL Albumin (3.40-5.00) g/dL Lipase (73-393) U/L Specimen Type Urine Color (YELLOW) Urine Appearance (CLEAR) Urine pH (5.0-9.0) Ur Specific [place] (1.005-1.030) Urine Protein (NEGATIVE) mg/dL Urine Glucose (UA) (NEGATIVE) mg/dL Urine Ketones (NEGATIVE) mg/dL Urine Occult Blood (NEGATIVE) Urine Nitrite (NEGATIVE) Urine Bilirubin (NEGATIVE) Urine Urobilinogen (0.2-1.0) E.U./dL Ur Leukocyte Esterase (NEGATIVE) Urine RBC (0-5) /HPF Urine WBC (0-5) /HPF Ur Epithelial Cells /LPF Urine Bacteria (NONE TO FEW) /HPF Urine HCG, Qual Negative (NEGATIVE) Meds: Medications Generic Name Dose Route Start Last Admin Trade Name Freq PRN Reason Stop Dose Admin Sodium Chloride 50 mls @ 200 mls/min 05/25/21 01:30 05/25/21 01:42 Normal Saline IV 200 mls/min ASDIRECTED CAYLA Administration Piperacillin/Tazobactam/ 50 mls @ 100 mls/hr 05/25/21 03:12 Dextrose 3.375 gm/ Premix IV 05/25/21 03:41 ONETIME ONE Sodium Chloride 1,000 mls @ 125 mls/hr 05/25/21 03:15 Normal Saline IV ASDIRECTED CAYLA Sodium Chloride 10 ml 05/25/21 00:31 Sodium Chloride 0.9% 10 Ml Syringe FLUSH Q8HR PRN keep vein open Discontinued Medications Generic Name Dose Route Start Last Admin Trade Name Freq PRN Reason Stop Dose Admin Sodium Chloride 1,000 mls @ 999 mls/hr 05/25/21 00:31 05/25/21 01:16 Normal Saline IV 05/25/21 01:31 999 mls/hr .BOLUS ONE Administration Iopamidol 75 ml 05/25/21 01:18 05/25/21 01:42 Iopamidol 755 Mg/Ml 75 Ml Bottle IVPUSH 05/25/21 01:19 75 ml ONETIME ONE Administration Ketorolac Tromethamine 30 mg 05/25/21 01:02 05/25/21 01:11 Ketorolac 30 Mg/Ml Sdv IVPUSH 05/25/21 01:03 30 mg ONETIME ONE Administration Morphine Sulfate 4 mg 05/25/21 01:43 05/25/21 02:00 Morphine 4 Mg/Ml Syringe IVPUSH 05/25/21 01:44 4 mg ONETIME ONE Administration Ondansetron HCl 4 mg 05/25/21 00:31 05/25/21 01:01 Ondansetron 4 Mg/2 Ml Sdv IVPUSH 05/25/21 00:32 4 mg ONETIME ONE Administration Departure - Departure Time of Disposition: 03:13 Disposition: DC/Tfer to Acute Hospital 02 Condition: Serious Clinical Impression: Acute appendicitis Qualifiers: Appendicitis perforation presence: without perforation - Discharge Information Referrals: Joy العلي MD [Primary Care Provider] - Forms: ED Department Discharge, Interfacility Transfer [facility] Sepsis Event Note (ED) - Evaluation Sepsis Screening Result: Possible Sepsis Risk - Focused Exam Vital Signs: Vital Signs Temp Pulse Resp BP Pulse Ox 05/25/21 00:25 97.7 F 94 24 H 117/73 100 - My Orders Last 24 Hours: My Active Orders 05/25/21 00:31 Sodium Chloride 0.9% [Saline Flush] 10 ml FLUSH Q8HR PRN Peripheral IV Insertion Adult [OM.PC] Routine 05/25/21 00:32 Peripheral IV Care [RC] . DIRECTED 05/25/21 00:42 Abdomen Pelvis w Cont [CT] Stat 05/25/21 01:30 Sodium Chloride 0.9% [Normal Saline] 50 ml IV ASDIRECTED 05/25/21 03:12 Piperacillin/Tazobactam/Dext [Zosyn in Dextrose Iso-Osmotic 3.375 GM/50 ML] 3.375 gm Premix Bag 1 bag IV ONETIME 05/25/21 03:15 Sodium Chloride 0.9% @ 125 MLS/HR (1000ml) Sodium Chloride 0.9% [Normal Saline] 1,000 ml IV ASDIRECTED - Assessment/Plan Last 24 Hours: My Active Orders 05/25/21 00:31 Sodium Chloride 0.9% [Saline Flush] 10 ml FLUSH Q8HR PRN Peripheral IV Insertion Adult [OM.PC] Routine 05/25/21 00:32 Peripheral IV Care [RC] . DIRECTED 05/25/21 00:42 Abdomen Pelvis w Cont [CT] Stat 05/25/21 01:30 Sodium Chloride 0.9% [Normal Saline] 50 ml IV ASDIRECTED 05/25/21 03:12 Piperacillin/Tazobactam/Dext [Zosyn in Dextrose Iso-Osmotic 3.375 GM/50 ML] 3.375 gm Premix Bag 1 bag IV ONETIME 05/25/21 03:15 Sodium Chloride 0.9% @ 125 MLS/HR (1000ml) Sodium Chloride 0.9% [Normal Saline] 1,000 ml IV ASDIRECTED Assessment:: 1. ACUTE APPENDICITIS 2. INTRACTABLE NAUSEA/VOMITING Plan: 1. TRANSFER INITIATED AT [address] [place] [address]; [facility]; [facility]-NO BEDS 2. TRANSFER TO [facility]- DR [facility]RERA ACCEPTING AT 0315 3. SUPPORTIVE CARE 4. ZOFRAN/MORPHINE FOR NAUSEA/PAIN CONTROL 5. ZOSYN 3.375G IV
[2021-05-25] MEDS: Ondansetron 4 MG/2 ML SDV IVPUSH ONE (01:01)
[2021-05-25] MEDS: Ketorolac 30 MG/ML SDV IVPUSH ONE (01:11)
[2021-05-25] MEDS: Sodium Chloride 0.9% 1,000 ML IV ONE (01:16)
[2021-05-25 01:30] LABS: ANION GAP 28.2 mmol/L (5-15); CHLORIDE,CL 98 mmol/L (98-107); SODIUM,NA 134 mmol/L (136-145)
[2021-05-25] MEDS: Iopamidol 755 Mg/ML 75 ML Bottle IVPUSH ONE (01:42)
[2021-05-25] MEDS: Sodium Chloride 0.9% 50 ML IV SCH (01:42)
[2021-05-25] MEDS: Morphine 4 MG/ML Syringe IVPUSH ONE (02:00)
[2021-05-25] MEDS: Morphine 2 MG/ML SYRINGE IVPUSH ONE (03:26)
[2021-05-25] MEDS: Sodium Chloride 0.9% 1,000 ML IV SCH (03:30)
[2021-05-25] MEDS: Piperacillin/Tazobactam/Dext 3.375 GM in Premix Bag 1 BAG IV ONE (03:36)
--- NOTE | 2021-05-25 07:43 | CT ---
[id number] CT/CT Abdomen Pelvis W IV EXAM: ABDOMEN AND PELVIS CT WITH CONTRAST INDICATION: RLQ PAIN COMPARISON: None. DISCUSSION: Respiratory motion somewhat limits this examination. The appendix is dilated, fluid-filled and has appendicoliths compatible with acute appendicitis. There is a small volume of free fluid in the pelvis. No remote free air or abscess is identified. Staghorn calculus left renal calculus measuring about 21 x 14 x 8 mm and resulting in mild hydronephrosis. There are other scattered nonobstructing intrarenal calculi measuring up to about 7 x 3 mm. There are few tiny right intrarenal calculi. Scattered small bilateral renal cysts measuring up to about 13 mm. Scattered diverticula of the colon without evidence of diverticulitis. The liver, gallbladder, spleen, pancreas, adrenal glands, small bowel, uterus and ovaries are unremarkable. No adenopathy. The osseous structures are unremarkable. IMPRESSION: 1. Acute appendicitis. Trace free fluid in the pelvis, but no abscess or free air. 2. Mild left hydronephrosis potentially secondary to a staghorn calculus in the left renal pelvis. Jose Gasca MD 05/25/21 0742 Thank you for allowing us to participate in the care of your patient.
[2021-05-27] MEDS: Morphine 4 MG/ML Syringe ONE (12:25)
== END 2021-05-25 03:41 ==
LOC: KA.ED 00:16 → SUPCPDRO 00:16 → KA.ED 03:41
DX: K35.80 Unspecified acute appendicitis (principal); E03.9 Hypothyroidism, unspecified; Z79.899 Other long term (current) drug therapy
CPT/HCPCS: 36415; 74177; 80053; 81001; 81025; 83690; 85025; 96374; 96375; 96376; 99283; 99285-25; J1885; J2270; J2405; J2543; J7030; Q9967